=== PATIENT | female | born 1995 | race Caucasian/White ===

== ENCOUNTER → 2020-06-27 13:14 | Outpatient (CLI) | payer SELFPAY ==
--- NOTE | 2020-06-27 13:21 | US_ITS ---
STUDY: ABDOMINAL ULTRASOUND - RIGHT UPPER QUADRANT REASON FOR VISIT: Female, 24 years old RUQ PAIN SPLENOMEGALY SEEN ON CT LESIONS ON LIVER ON CT TECHNIQUE: Ultrasound evaluation of the right upper quadrant was performed with real-time and static koo-scale imaging. TECHNICAL QUALITY: Adequate. COMPARISON: None. FINDINGS: Liver: The liver measures 15.5 cm. There is normal echogenicity of the liver. The bile ducts are within normal limits. There is hepatic color flow. The direction of portal flow is hepatopetal. There are 3 slightly echogenic nodules in the right lobe of the liver suggestive of hemangiomas. The largest measures 1.4 cm x 1.1 cm x 1.2 cm. Gallbladder: Normal distended gallbladder. The gallbladder wall measures 1.7 mm. There is a negative sonographic More''s sign. There is no pericholecystic fluid. There are no gallstones. Common Bile Duct (C.B.D.): The common bile duct measures 2.6 mm. Pancreas: Normal size of the head, body and tail of the pancreas. There is normal echogenicity of the pancreas. There is no demonstrated pancreatic mass or cyst. Right Kidney: Normal size of the right kidney. The right kidney measures 10.7 cm x 5.8 cm x 4.2 cm. Normal renal cortex. The right cortex measures 1.5 cm. There is no demonstrated renal mass or cyst. There is no right hydronephrosis. IMPRESSION: 3 small slightly echogenic nodules in the right lobe of the liver suggestive of hemangiomas. The largest measures 1.4 cm x 1.1 cm x 1.2 cm. Electronically Signed: Richard Crespo MD at 15:13 EST , Service support , STUDY: ABDOMINAL ULTRASOUND - LEFT UPPER QUADRANT REASON FOR EXAM: Female, 24 years old. RUQ PAIN SPLENOMEGALY SEEN ON CT LESIONS ON LIVER ON CT TECHNIQUE: Transabdominal ultrasound was performed with real-time and static koo scale imaging. TECHNICAL QUALITY: Adequate. COMPARISON: None. FINDINGS: Spleen: Normal size of the spleen. The spleen measures 12.7 cm x 5.3 cm x 5.9 cm. Left Kidney: Normal size of the left kidney. The left kidney measures 10.7 cm x 4.7 cm x 5 cm. Normal renal cortex. The left cortex measures 1.8 cm. There is no demonstrated renal mass or cyst. There is no left hydronephrosis. US/Abdomen Limited IMPRESSION: Normal left upper quadrant abdominal ultrasound examination. Electronically Signed: Richard Crespo MD at 15:13 EST , Service support ,
== END ==
PROVIDERS: PCP Nurse Practitioner Family; Referring Provider Internal Medicine; Visit Provider Internal Medicine
DX: R16.1 Splenomegaly, not elsewhere classified (principal); K76.9 Liver disease, unspecified
CPT/HCPCS: 76705

== ENCOUNTER → 2022-08-13 | Outpatient (CLI) | payer OTHER, SELFPAY ==
[2022-08-13 15:57] LABS: Internal QC Validated? YES +Cl - CLEAR BKGD
[2022-08-13 16:01] LABS: Pregnancy, Serum, hCG Quali. POSITIVE Negative
== END | disposition home or self-care (01) ==
PROVIDERS: PCP Nurse Practitioner Family; Referring Provider Nurse Practitioner Family; Visit Provider Nurse Practitioner Family
DX: N92.6 Irregular menstruation, unspecified (principal)
CPT/HCPCS: 36415; 84703

== ENCOUNTER 2023-02-07 10:55 | Outpatient (CLI) | payer OTHER, SELFPAY ==
[2023-02-07] VITALS (8 sets, daily range): BP systolic 115–122; BP diastolic 74–81; PULSE 79–97; TEMP 37.3; O2SAT 97–98; BMI 35.0
--- NOTE | 2023-02-09 08:31 | OB.TRI.NOTE ---
HPI - General General Date of Service: 02/07/23 HPI Narrative SHAMA LIVINGSTON, is a 27 F who presents feeking dizzy. Maternal Data Information Final ESTEFANÍA: 04/25/23 Gestational age: 29 PFSH PFSH Home Medications magnesium 200 mg tablet 400 mg PO DAILY 02/07/23 [History Last Taken 02/06/23] vit 115-iron fum 29 mg iron-folic acid 1 mg-dss 25 mg tablet 1 tab PO DAILY 02/07/23 [History Last Taken 02/06/23] Allergy/AdvReac Type Severity Reaction Status Date / Time clindamycin Allergy Intermediate Rash Verified 02/07/23 11:13 levofloxacin [From Levaquin] Allergy Intermediate Rash Verified 02/07/23 11:13 sulfamethoxazole Allergy Intermediate Rash Verified 02/07/23 11:13 [From Bactrim] trimethoprim [From Bactrim] Allergy Intermediate Rash Verified 02/07/23 11:13 rizatriptan [From Maxalt] AdvReac Severe Low blood Verified 02/07/23 11:13 pressure Social History Smoking Status: Never smoker NST FHR Rate Baby A Baseline: 135 Variability:: Moderate Accelerations:: 15 x 15 Decelerations:: None Uterine Activity:: quiet Assessment & Plan (1) Dizzy: PLAN: Plan reactive NST
== END 2023-02-07 11:55 | disposition home or self-care (01) ==
LOC: WPOUT 10:59 → WP 10:59
PROVIDERS: PCP Family Medicine; Visit Provider Obstetrics & Gynecology
DX: O99.891 Other specified diseases and conditions complicating pregnancy (principal); R42 Dizziness and giddiness; Z3A.00 Weeks of gestation of pregnancy not specified
CPT/HCPCS: 59025; 59050

== ENCOUNTER 2023-04-22 05:00 | Inpatient (IN) | payer OTHER, SELFPAY ==
--- NOTE | 2023-04-05 15:44 | PCM.HP.BLA ---
History and Physical Date of Admission: 04/22/23 Pre-Op History and Physical ? HPI: The patient is a 27 year old female presenting for pre-operative visit. She is scheduled for , for previous c/s and 39 weeks on 04/22/23. Procedure discussed along with risks, benefits and complications. Other alternatives discussed for management. Consent form signed? Yes. ? ? PAST MEDICAL HISTORY PAST MEDICAL HISTORY Diagnosis Date ? Anemia ? ? Atypical squamous cells cannot exclude high grade squamous intraepithelial lesion on cytologic smear of cervix (ASC-H) 11/2021 ? Cardiac arrhythmia ? ? Patient states this was due to panic attacks due to a personal situation ? Cervical high risk HPV (human papillomavirus) test positive 11/2021 ? Depression ? ? Dizziness ? ? Interstitial cystitis ? ? Lazy eye ? ? As child ? Migraines ? ? with visual aura ? depression ? ? Screening for genetic disease carrier status 10/2022 ? carrier screen panel neg. results in EPIC ? Tachycardia ? ? ? PAST SURGICAL HISTORY PAST SURGICAL HISTORY Procedure Laterality Date ? DELIVERY ONLY ? 2013 ? DELIVERY ONLY ? 2016 ? CYSTOSCOPY ? ? ? 09/24 ? INSERT INTRAUTERINE DEVICE ? 01/18/2019 ? fell out ? ? ? CURRENT MEDICATIONS Current Outpatient Medications Medication Sig Dispense Refill ? vits62/FA/om3/dha/epa ( GUMMY ORAL) Take by mouth. ? ? ? magnesium oxide 400 mg magnesium cap Take 400 mg by mouth. ? ? ? loratadine (CLARITIN) 10 mg tablet, chewable Take 10 mg by mouth once daily. ? ? ? No current facility-administered medications for this visit. ? ? ALLERGIES: Bactrim [Sulfamethoxazole], Clindamycin, Levaquin [Levofloxacin], Maxalt [Rizatriptan], and Vancomycin ? PERSONAL HISTORY: SOCIAL HISTORY Social History ? Tobacco Use ? Smoking status: Former ? ? Years: 2 ? ? Types: Cigarettes ? ? Quit date: 09/10/2020 ? ? Years since quittin.5 ? Smokeless tobacco: Never ? Tobacco comments: ? ? socially Vaping Use ? Vaping Use: Former ? Quit date: 09/17/2020 ? Substances: Nicotine Substance Use Topics ? Alcohol use: Never ? ? Comment: seldom ? Drug use: No ? FAMILY HISTORY: FAMILY HISTORY FAMILY HISTORY Problem Relation Age of Onset ? Thyroid Mother ? ? Hyperlipidemia Mother ? ? other (irritable bowel disease) Mother ? ? other (hyperthyroid) Mother ? ? Hyperlipidemia Father ? ? Hypertension Father ? ? other (atrial fibrillation) Father ? ? Obesity Sister ? ? other (pcos) Sister ? ? Depression Brother ? ? Breast Cancer Maternal Grandmother ? ? Cancer Maternal Grandfather ? ? prostate cancer ? Asthma Maternal Grandfather ? ? Cataract Maternal Grandfather ? ? COPD Maternal Grandfather ? ? No Known Problems Paternal Grandmother ? ? Thyroid Paternal Grandfather ? ? Asthma Son ? ? Asthma Son ? ? ? REVIEW OF SYMPTOMS: GENERAL: denies fevers or chills ENDOCRINOLOGY: has not been on steroids Cardiology : denies palpitations or chest pain Respiratory: denies SOB or cough Hematology: denies history of prolonged bleeding or easy bruising or VTE Allergy: Denies history of personal or family history of allergy to anesthesia ? PHYSICAL EXAMINATION: ? VITALS: Blood pressure 108/68, weight 223 lb (101.2 kg), last menstrual period 07/19/2022. ? GENERAL: The patient is well nourished, well hydrated in no acute distress. , The patient is oriented to time, place, and person. NECK: Supple. No lynphadenopathy, normal thyroid, no thyromegaly. LUNGS: Clear to auscultation bilaterally. no wheezes, rhonchi or rales HEART: Regular rate and rhythm, Normal heart sounds, and No murmurs or gallops GENITALIA: Normal external genitalia, Urethral meatus normal, Bladder nontender, normal vagina and normal vaginal tone, normal cervix, normal uterus, size and consistency, normal adnexa without masses or tenderness, and perineum WNL ? IMPRESSION: Estimated Date of Delivery: 04/25/23 ? PLAN: The risks/benefits/alternatives and personal involved for the planned were reviewed with the patient. Her questions were answered to her satisfaction and she desires to proceed. Consent was signed. I reviewed with her postop instructions and expectations. ? ? I have reviewed and updated past medical and surgical history, medications and allergies
[2023-04-22] VITALS (15 sets, daily range): BP systolic 111–155; BP diastolic 52–84; PULSE 69–116; RESP 15–18; TEMP 35.9–36.7; O2SAT 95–100; BMI 39.3
[2023-04-22] MEDS: Lactated Ringers 1,000 ML 999 ML IV (05:20)
[2023-04-22 05:38] LABS: Absolute Lymphocyte Count 1.44 X10^3/uL (0.83-4.51); Absolute Neutrophil Count 4.2 X10^3/uL (2.0-7.7); Basophil# 0.03 X10^3/uL; Basophil% 0.5 % (0-1); Eosinophils% 1.6 % (0-5); Hematocrit 34.9 % (37-47); Hemoglobin 11.6 g/dL (12.0-15.0); Lymphocyte # 1.44 X10^3/ul (0.83-4.51); Lymphocyte % 23.6 % (19-41); Mean Corp Hgb Conc 33.2 g/dL (32-36); Mean Corpuscular Hgb 26.7 pg (27.0-32.0); Mean Corpuscular Volume 80.2 fL (81-99); Mean Platelet Vol. 11.7 fl (6.2-12.0); Monocyte# 0.32 X10^3/uL; Monocyte% 5.2 % (0-10); NRBC Flagged by Analyzer 0 % (0-5); Neutrophil # 4.19 X10^3/uL (2.7-7.7); Neutrophil % 68.8 % (47-70); Platelet Count 194 K/mm3 (150-450); RBC Distribution Width CV 13.7 % (11.6-14.6); RBC Distribution Width SD 39.7 fl (35.1-43.9); Red Blood Count 4.35 M/mm3 (4.2-5.4); White Blood Count 6.1 K/mm3 (4.4-11.0)
[2023-04-22 06:21] LABS: Syphilis Antibodies Non-reactive
[2023-04-22] MEDS: Lactated Ringers 1,000 ML 150 ML IV (06:22)
[2023-04-22] MEDS: Sodium Citrate/Citric Acid 30 ML UDC PO (06:54)
[2023-04-22] MEDS: Acetaminophen 500 MG Tablet 1000 MG PO ×2 (06:54→20:21)
[2023-04-22] MEDS: Cefazolin 2 GM in 0.9% Normal Saline (100mL Bag) 100 ML IV (07:06)
[2023-04-22 07:25] LABS: ALB/GLOB Ratio 0.7 RATIO (0.9-2.4); AST(SGOT) 18 U/L (15-37); Alanine Aminotransfer ALT/SGPT 18 U/L (13-56); Albumin, Serum 2.7 g/dL (3.2-5.0); Alkaline Phosphatase 96 U/L (45-117); Anion Gap 10 (5-15); BUN 6 mg/dL (7-18); BUN/Creat Ratio 9.6 RATIO (10-20); Calcium,Total 8.2 mg/dL (8.5-10.1); Chloride 108 mmol/L (98-107); Creatinine, Serum 0.63 mg/dL (0.55-1.02); EST Glomerular Filtration Rate 119 mL/min (>60); Est Glom Filt Rate - Afr Amer 144 mL/min (>60); Estimated Creatinine Clearance 113.78 ml/min; Globulin 4.1 g/dL (2.2-4.2); Glucose 196 mg/dL (74-106); Potassium 3.5 mmol/L (3.5-5.1); Protein, Total 6.8 g/dL (6.4-8.2); Sodium Level 140 mmol/L (136-145)
--- NOTE | 2023-04-22 08:07 | OP.PCM_ITS ---
Assessment & Plan (1) 39 weeks gestation of : (2) delivery delivered: (3) Previous delivery affecting : (4) Delivery outcome of single liveborn infant: (5) Maternal obesity syndrome in third trimester: (6) Severe obesity (BMI 35.0-39.9) with comorbidity: Maternal Data Information Final ESTEFANÍA: 04/25/23 Gestational age: 39 4/7 Details Operative Information Date of Procedure: 04/22/23 Pre-Operative Diagnosis: previous c/s Post-Operative Diagnosis: same Indications for : Repeat Elective Classification: Scheduled Procedure Type: low transverse senior construction manager #1: Tirso Coulter Type of Anesthesia: Spinal Anesthesiologist: Jack Garcia Special Medications: duramorph Antibiotic Given: Ancef 2 grams IV x1 Drain: Vickres to straight drain Estimated Blood Loss: 600 Fluids Replaced: 950 Procedure Start Time: 07:35 Time of Delivery: 07:40 Findings Description of Procedure: The patient was taken to the operating room. She was prepped and draped in the dorsal supine position with a leftward tilt. A Pfannenstiel skin incision was made approximately 2 cm above the symphysis pubis and carried through to un derlying layer fascia with the scalpel. The fascia was incised incised in the midline and extended laterally with the Balbuena scissors. The fascia was dissected off the rectus muscles with blunt and sharp dissection. The rectus muscles were in the midline and the peritoneum was entered bluntly. There were some peritoneal adhesions from the pelvic sidewalls to the lower uterine segment. The peritoneal incision was stretched and the bladder blade was placed. The uterine incision was made in a low transverse fashion with the scalpel and extended superiorly and inferiorly with blunt dissection. The amniotic membranes were ruptured bluntly and clear amniotic fluid returned. The 's head was brought to the incision in the flexed position and delivered without difficulty. The remainder of the was delivered with gentle traction and fundal pressure in the standard fashion. The mouth and nares were bulb suctioned. The cord was clamped and cut as the was stimulated. Cord clamping was delayed. The was handed off to the waiting nursing staff. The placenta was delivered with fundal massage and gentle traction in the standard fashion. The uterus was exteriorized and cleared of all clots and debris. The cervix was dilated with a ring forcep. The uterine incision was closed with #1 Vicryl in a running locked fashion. Some hemoblast was placed o jack the incision and hemostasis was noted. The incision was examined and was found to be hemostatic. The uterus was placed back into the peritoneal cavity and hemostasis was again confirmed. The rectus muscles were examined and any bleeding was Bovie cauterized. There was not enough laxity to reapproximate the rectus muscles but the peritoneum was closed in a running standard fashion with 0 Vicryl suture.. The surgical teams outer gloves were then changed. The rectus fascia was examined and any bleeding was Bovie cauterized and the rectus fascia was closed with #1 PDS suture in a running standard fashion. The subcutaneous tissue was examining and any bleeding was Bovie cauterized. The subcutaneous tissue was reapproximated with 3-0 Vicryl suture. The skin was closed in a subcuticular fashion by the DIRECTOR OF MATERNITY SERVICES with me present in the labor and delivery suite. I performed the remainder of the procedure with assistance. All sponge, lap, and needle counts were correct. The patient was taken to her room for recovery in a stable condition. Presentation: Positive for Vertex Amniotic Membrane Rupture Type: Spontaneous Amniotic Fluid Description: Clear Placental Delivery Description: Expressed Placenta Disposition: [facility] Cord Vessel Description: 3 Vessels Cord Entanglement: Around neck x 1, loose Nuchal Cord Compression: Without compression Infant A Gender: Male (Devan 7 pounds 13 ounces) (1 minute): 8 (5 minute): 9 Delayed Cord Clamping: Yes Complications Complications: none
[2023-04-22] MEDS: Oxytocin 15 Units/NS 250ml 15 UNITS/250 ML IV.SOLN 83 UNITS IV (08:35)
[2023-04-22] MEDS: Ketorolac 30 MG/ML Syringe IV ×3 (09:05→20:20)
[2023-04-22] MEDS: Ondansetron 4 MG/2 ML Vial IV ×2 (10:58→12:46)
[2023-04-22] MEDS: 0.9% Saline Lock 10 ML Syringe IV ×2 (10:59→20:20)
[2023-04-22] MEDS: Lactated Ringers 1,000 ML 100 ML IV (11:54)
[2023-04-22] MEDS: Enoxaparin 40 MG/0.4 ML Syringe SC (20:20)
[2023-04-23 00:01] VITALS: BP 118/51; PULSE 81; RESP 15; TEMP 36.4; O2SAT 98
[2023-04-23] MEDS: Acetaminophen 500 MG Tablet 1000 MG PO ×4 (01:01→19:55)
[2023-04-23] MEDS: 0.9% Saline Lock 10 ML Syringe IV (02:38)
[2023-04-23] MEDS: Ketorolac 30 MG/ML Syringe IV (02:38)
[2023-04-23 03:35] VITALS: BP 124/51; PULSE 81; RESP 17; TEMP 36.4; O2SAT 98
[2023-04-23 06:27] LABS: Hemoglobin 9.4 g/dL (12.0-15.0); Mean Corp Hgb Conc 31.3 g/dL (32-36); Mean Corpuscular Hgb 25.5 pg (27.0-32.0); Mean Corpuscular Volume 81.3 fL (81-99); Mean Platelet Vol. 11.2 fl (6.2-12.0); Platelet Count 161 K/mm3 (150-450); RBC Distribution Width CV 13.9 % (11.6-14.6); RBC Distribution Width SD 40.8 fl (35.1-43.9); Red Blood Count 3.69 M/mm3 (4.2-5.4)
--- NOTE | 2023-04-23 08:18 | PN_ITS ---
Subjective Subjective patient seen at bedside, doing well. Patient reports good pain control. lochia mild. Passing flatus. pt reports Breast feeding w/o concerns. Objective Data Objective Data Vital Signs: Vital Signs Temp Pulse Resp BP Pulse Ox O2 Del Method 97.5 F L 81 17 124/51 H 98 Room Air 04/23/23 03:35 04/23/23 03:35 04/23/23 03:35 04/23/23 03:35 04/23/23 03:35 04/23/23 03:35 Oxygen Delivery Method Room Air Weight: 104 kg Body Mass Index (BMI) 39.3 Intake & Output: Intake and Output for Last 24 Hours 04/21/23 04/22/23 04/23/23 23:59 23:59 23:59 Intake Total 2061.67 / 2061.67 Output Total 1500 / 1500 Balance 561.67 / 561.67 Lab / Micro Data 04/23/23 06:13 04/22/23 05:20 Labs: Laboratory Results - last 24 hr 04/22/23 05:20: Blood Type A POSITIVE, Antibody Screen NEGATIVE 04/23/23 06:13: WBC 7.0, RBC 3.69 L, Hgb 9.4 L, Hct 30.0 L, MCV 81.3, MCH 25.5 L , MCHC 31.3 L D, RDW Std Deviation 40.8, RDW Coeff of Danial 13.9, Plt Count 161, MPV 11.2 Physical Exam Narrative dressing dry and intact. fundus firm Const alert and oriented x3 General Appearance: cooperative HEENT normocephalic Neck General: normal visual inspection GI soft to palpation and non-distended GI Narrative: Fundus firm Extremity normal to inspection and no calf tenderness Skin no rashes or lesions noted Neuro oriented x3 and CN's II-XII intact bilaterally Psych mental status grossly normal Assessment & Plan Assessment/Plan (1) Delivery by section: (2) Severe obesity (BMI 35.0-39.9) with comorbidity: PLAN: Plan POD#1 , Doing well Routine care pain mgmt monitor VS ambulation dc home requested by patient - declines any narcotic rx
--- NOTE | 2023-04-23 08:20 | DS.PCM_ITS ---
Discharge Summary Date of Admission: 04/22/23 Date of Discharge: 04/23/23 Summary: pt admitted to [facility] on 04/22/23 for scheduled performed by Dr. Linda Shultz. Patient had an uncomplicated postoperative course. She was discharged home on postoperative day 1 without complication. Meaningful Use Info Meaningful Use Diagnoses (Choose all that apply): None applicable Discharge Plan Admission Admit Date/Time: 04/22/23 05:00 Attending Provider: Linda Shultz Primary Care Provider: Yovana Olvera Discharge Orders/Prescriptions Prescriptions: No Action magnesium 200 mg tablet 400 mg PO DAILY prenat 115-iron [id number] 29 mg iron- 1 mg-25 mg tablet 1 tab PO DAILY Referrals / Follow Up: Yovana Olvera, [Primary Care Provider] -
--- NOTE | 2023-04-23 08:32 | DS.PCM_ITS ---
Providers Date of Admission: 04/22/23 Primary Care Physician: Yovana Olvera DO Reason For Visit: C SECTION Diagnosis Discharge Diagnosis (1) Delivery by section: Status: Acute (2) Severe obesity (BMI 35.0-39.9) with comorbidity: Status: Acute Code(s): E66.01 - Morbid (severe) obesity due to excess calories Medications at Discharge Home Medications magnesium 200 mg tablet 400 mg PO DAILY 02/07/23 vit 115-iron fum 29 mg iron-folic acid 1 mg-dss 25 mg tablet 1 tab PO DAILY 02/07/23 Hospital Course Operations - (Repeat LTCS on 04/22/23) Procedures None Summary of Care Provided Minutes Spent on Discharge: 18 Hospital Course: 27-year-old multigravida female admitted at 39+ gestational weeks on 04/22/2023. She had a repeat section done without complications. By day #1 she was hemodynamically stable, her mild acute blood loss anemia was appropriate for blood loss during surgery. She was discharged home with routine instructions and follow-up. The was doing well. Physical Exam Narrative Pain well-controlled average lochia. No nausea or vomiting. Const alert General Appearance: cooperative GI GI Narrative: soft, moderate distention, fundus firm, appropriately tender. Abdominal bandage clean dry and intact Weight / BMI Weight Weight: 104 kg Body Mass Index (BMI) 39.3 ABG / Lab / Microbiology Data 04/23/23 06:13 04/22/23 05:20 Laboratory: Laboratory Results - last 24 hr 04/22/23 05:20: Blood Type A POSITIVE, Antibody Screen NEGATIVE 04/23/23 06:13: WBC 7.0, RBC 3.69 L, Hgb 9.4 L, Hct 30.0 L, MCV 81.3, MCH 25.5 L , MCHC 31.3 L D, RDW Std Deviation 40.8, RDW Coeff of Danial 13.9, Plt Count 161, MPV 11.2 D/C Instructions Discharge Diet: No restrictions May resume sexual activity in: 4-6 weeks Lifting Restrictions: 20 pounds Additional Activity Instructions: Nothing in the vagina for 4-6 weeks. You may return to work/school in 6 weeks. Call your doctor if your incision/area has: Continuous Slow Oozing, Sudden Increased Bleeding, Increased Pain/ Swelling, Increased Redness and Foul Smelling Discharge Call your doctor if you observe: Fever of 101 or Higher and Using more than 1 pad per hour (for 2 hours) Suture Line Care: Avoid Pulling/Pushing and Avoid Pinching/Bending Cleanse incision/area with: Keep Dressing Clean & Dry Please Follow Up With: Linda Shultz MD When: Call to make an appointment for an incision check in 1-2 [phone]. You will need a post check in 6 weeks. Send a [employer] message for any questions or non urgent concerns Meaningful Use Info Meaningful Use Diagnoses (Choose all that apply): None applicable Discharge Plan Admission Admit Date/Time: 04/22/23 05:00 Primary Reason for Your Visit: Repeat Attending Provider: Linda Shultz Primary Care Provider: Yovana Olvera Discharge Orders/Prescriptions Prescriptions: No Action magnesium 200 mg tablet 400 mg PO DAILY prenat 115-iron [id number] 29 mg iron- 1 mg-25 mg tablet 1 tab PO DAILY Referrals / Follow Up: Yovana Olvera, DO [Primary Care Provider] - Disposition Disposition (needs filled in before D/C Order can be placed): Home, Self Care
[2023-04-23 09:01] LABS: Bedside Glucose 111 mg/dL (74-106)
[2023-04-23 09:18] VITALS: BP 117/58; PULSE 74; RESP 18; TEMP 37.1
[2023-04-23] MEDS: Ibuprofen 600 MG Tablet PO ×3 (10:07→22:48)
[2023-04-23] MEDS: Senna/Docusate Sodium 1 Tablet PO (10:07)
--- NOTE | 2023-04-23 10:35 | CASEMGMT ---
Social Work Assessment Labor and Delivery Unit Patient Address: [address] [place] [address] [address] [place] Phone number: [phone] Date of Referral: 04/22/2023 Time of Referral:? 12:20 Referred By: Carrington Date of Intervention: ?04/23/2023 Time of Intervention:? 10:30 Reason for Referral:? PPD History obtained from: medical records and mother of baby (MOB) and FOB Household composition: MOB, FOB ? when not in [place]. FOB has been in [place] for the . Two sons ages 9 and 6. Patient's parent/guardian status: MOB and FOB are and have been together 3 years. FOB is planning to exit the to be home more. FOB is taking parental leave. Medical History: MOB received adequate care. MOB denies any medical concerns. Born via . Baby boy, Devan Stanton, 7.14 lbs, 8/9 apgars. MOB denies medical concerns for baby. Educational Status: No literacy concerns Financial Status: No financial concerns Infant Supplies: Parents report having all necessary supplies and equipment Childcare/Caregiver(s):? MOB plans to care for child and FOB while on leave. Grandparents live 10 minutes away. Transportation:? No concerns Programs/Agencies Involved: ??None currently Children Services/Legal Issues:??? None Behavioral Health Issues: ?? Mental Health History: Mother denies any major mental health concerns/history. Mother does report PPD with prior pregnancies 6 and 9 years ago but also reports it was a difficult relationship with their father. Substance Use History:?? Denies personal history. Family History: Denies family history.??? Drug Screens: ?None Family/Social Stressors: ?FOB active in the , has applied to discharge as he lives in [place] currently and was unable to bring /kids to [place]. Support Systems: Grandparents are involved and supportive Depression: Education provided and parents receptive Shaken Baby: Education provided and parents receptive Safe Sleeping: Education provided and parents receptive ASSESSMENT: MOB and FOB appropriate. Parents ask appropriate questions and have a good support system. PLAN:? No other services requested or indicated. Keeley Smith [employer]ISTURE METER [employer], [employer]
[2023-04-23 13:00] VITALS: BP 132/72; PULSE 99; RESP 18; TEMP 36.4
--- NOTE | 2023-04-23 13:23 | PCM.PN.BLA ---
Progress Note Update-Patient going home tomorrow due to baby needing recheck on bilirubin. See discharge instructions for today's note.
[2023-04-23] MEDS: oxyCODONE 5 MG Tablet PO ×2 (16:47→22:48)
[2023-04-23] MEDS: SimETHICONE 80 MG Chewable Tablet PO (16:47)
[2023-04-23 19:40] VITALS: BP 144/84; PULSE 104; RESP 14; TEMP 36.4; O2SAT 97
[2023-04-23] MEDS: Enoxaparin 40 MG/0.4 ML Syringe SC (19:55)
[2023-04-24] MEDS: Acetaminophen 500 MG Tablet 1000 MG PO ×4 (02:00→20:30)
[2023-04-24 02:01] VITALS: BP 127/63; PULSE 97; RESP 14; TEMP 36.4
[2023-04-24] MEDS: oxyCODONE 5 MG Tablet PO ×4 (04:25→21:22)
[2023-04-24] MEDS: Ibuprofen 600 MG Tablet PO ×4 (04:26→22:15)
[2023-04-24 07:29] VITALS: BP 130/78; PULSE 80; RESP 16; TEMP 35.9
[2023-04-24] MEDS: Senna/Docusate Sodium 1 Tablet PO (10:19)
--- NOTE | 2023-04-24 11:04 | DS.PCM_ITS ---
Providers Date of Admission: 04/22/23 Primary Care Physician: Yovana Olvera DO Reason For Visit: C SECTION Diagnosis Discharge Diagnosis (1) Delivery by section: Status: Acute (2) Severe obesity (BMI 35.0-39.9) with comorbidity: Status: Acute Code(s): E66.01 - Morbid (severe) obesity due to excess calories (3) Post-operative pain: Status: Acute Code(s): G89.18 - Other acute postprocedural pain Medications at Discharge Home Medications vit 115-iron fum 29 mg iron-folic acid 1 mg-dss 25 mg tablet 1 tab PO DAILY 02/07/23 acetaminophen 500 mg tablet 1,000 mg (2 x 500 mg) PO Q6H #0 tabs 04/24/23 ibuprofen 600 mg tablet 600 mg PO Q6H #0 tabs 04/24/23 oxycodone 5 mg tablet 5 - 10 mg (1 - 2 x 5 mg) PO Q4H PRN PRN Pain Score 4-10 3 days #14 tabs 04/24/23 sennosides 8.6 mg-docusate sodium 50 mg tablet (Stool Softener-Stimulant Laxative) 1 - 2 tab PO DAILY #0 tabs 04/24/23 Hospital Course Operations section Procedures None Summary of Care Provided Minutes Spent on Discharge: 20 Hospital Course: Patient had repeat section. Hospital course was uneventful. Physical Exam Narrative Patient seen at bedside. Ambulating and voiding without difficulty. Denies headache, dizziness, SOB, or CP. independently. Desires discharge home later today. under lights and may need to stay another day. Const alert and no apparent distress General Appearance: cooperative and comfortable Exam Limitations: no limitations HEENT normocephalic Eyes General Eye: normal appearance of both eyes Neck full ROM General: normal visual inspection Chest Chest: symmetrical chest wall rise Resp normal respiratory effort and normal air movement Effort and Inspection: symmetric chest movement Auscultation: clear to auscultation bilaterally Cardio regular rate and regular rhythm GI normal to inspection, nondistended, normoactive bowel sounds Back/Spine normal ROM Extremity full ROM and no calf tenderness General Extremity: normal exam except as noted Skin no rashes or lesions noted Neuro CN's II-XII intact bilaterally Psych mental status grossly normal Weight / BMI Weight Weight: 229 lb 4.492 oz Body Mass Index (BMI) 39.3 ABG / Lab / Microbiology Data 04/23/23 06:13 04/22/23 05:20 D/C Instructions Discharge Diet: No restrictions May resume sexual activity in: 4-6 weeks Additional Activity Instructions: Nothing in the vagina for 4-6 weeks. You may return to work/school in 6 weeks. Call your doctor if your incision/area has: Continuous Slow Oozing, Sudden Increased Bleeding, Increased Pain/ Swelling, Increased Redness and Foul Smelling Discharge Call your doctor if you observe: Fever of 101 or Higher and Using more than 1 pad per hour (for 2 hours) Suture Line Care: Avoid Pulling/Pushing and Avoid Pinching/Bending Cleanse incision/area with: Keep Dressing Clean & Dry Please Follow Up With: Linda Shultz MD When: Call to make an appointment for an incision check in 1-2 [phone]. You will need a post check in 6 weeks. Send a [employer] message for any questions or non urgent concerns Meaningful Use Info Meaningful Use Diagnoses (Choose all that apply): None applicable Discharge Plan Admission Admit Date/Time: 04/22/23 05:00 Primary Reason for Your Visit: Repeat Attending Provider: Linda Shultz Primary Care Provider: Yovana Olvera Discharge Orders/Prescriptions Prescriptions: New sennosides-docusate sodium [Stool Softener-Stimulant Laxat] 8.6-50 mg Tablet 1 - 2 tab PO DAILY Qty: 0 0RF acetaminophen 500 mg Tablet 1,000 mg PO Q6H Qty: 0 0RF ibuprofen 600 mg Tablet 600 mg PO Q6H Qty: 0 0RF oxycodone 5 mg Tablet 5 - 10 mg PO Q4H PRN PRN (Reason: Pain Score 4-10) 3 Days Qty: 14 0RF Continued prenat 115-iron [id number] 29 mg iron- 1 mg-25 mg tablet 1 tab PO DAILY Discontinued magnesium 200 mg tablet 400 mg PO DAILY Referrals / Follow Up: Yovana Olvera DO [Primary Care Provider] - Disposition Disposition (needs filled in before D/C Order can be placed): Home, Self Care
[2023-04-24 14:51] VITALS: BP 137/84; PULSE 91; RESP 16; TEMP 36.4
[2023-04-24 20:25] VITALS: BP 140/88; PULSE 105; RESP 16; TEMP 36.7; O2SAT 96
[2023-04-24] MEDS: Enoxaparin 40 MG/0.4 ML Syringe SC (20:30)
[2023-04-25 00:35] VITALS: BP 115/59; PULSE 82; RESP 16; TEMP 36.6; O2SAT 100
[2023-04-25] MEDS: Acetaminophen 500 MG Tablet 1000 MG PO ×3 (03:09→15:10)
[2023-04-25 03:10] VITALS: BP 133/77; PULSE 96; RESP 20; TEMP 36.4; O2SAT 98
[2023-04-25] MEDS: Ibuprofen 600 MG Tablet PO ×3 (04:31→16:30)
[2023-04-25] MEDS: oxyCODONE 5 MG Tablet PO (06:07)
--- NOTE | 2023-04-25 08:24 | PCM.DC.SUM ---
Providers Date of Admission: 04/22/23 Primary Care Physician: Yovana Olvera DO Reason For Visit: C SECTION Diagnosis Discharge Diagnosis (1) Delivery by section: Status: Acute (2) Severe obesity (BMI 35.0-39.9) with comorbidity: Status: Acute Code(s): E66.01 - Morbid (severe) obesity due to excess calories (3) Post-operative pain: Status: Acute Code(s): G89.18 - Other acute postprocedural pain Medications at Discharge Home Medications vit 115-iron fum 29 mg iron-folic acid 1 mg-dss 25 mg tablet 1 tab PO DAILY 02/07/23 acetaminophen 500 mg tablet 1,000 mg (2 x 500 mg) PO Q6H #0 tabs 04/24/23 ibuprofen 600 mg tablet 600 mg PO Q6H #0 tabs 04/24/23 oxycodone 5 mg tablet 5 - 10 mg (1 - 2 x 5 mg) PO Q4H PRN PRN Pain Score 4-10 3 days #14 tabs 04/24/23 sennosides 8.6 mg-docusate sodium 50 mg tablet (Stool Softener-Stimulant Laxative) 1 - 2 tab PO DAILY #0 tabs 04/24/23 Hospital Course Operations section Procedures None Summary of Care Provided Minutes Spent on Discharge: 15 Physical Exam Narrative Dressing is dry and intact Const alert and no apparent distress General Appearance: cooperative and comfortable Exam Limitations: no limitations HEENT normocephalic Eyes General Eye: normal appearance of both eyes Neck full ROM General: normal visual inspection Chest Chest: symmetrical chest wall rise Resp normal respiratory effort and normal air movement Effort and Inspection: symmetric chest movement Auscultation: clear to auscultation bilaterally Cardio regular rate and regular rhythm GI normal to inspection, nondistended, normoactive bowel sounds Back/Spine normal ROM Extremity full ROM and no calf tenderness General Extremity: normal exam except as noted Skin no rashes or lesions noted Neuro CN's II-XII intact bilaterally Psych mental status grossly normal Weight / BMI Weight Weight: 229 lb 4.492 oz Body Mass Index (BMI) 39.3 ABG / Lab / Microbiology Data 04/23/23 06:13 04/22/23 05:20 D/C Instructions Discharge Diet: No restrictions May resume sexual activity in: 4-6 weeks Additional Activity Instructions: Nothing in the vagina for 4-6 weeks. You may return to work/school in 6 weeks. Call your doctor if your incision/area has: Continuous Slow Oozing, Sudden Increased Bleeding, Increased Pain/ Swelling, Increased Redness and Foul Smelling Discharge Call your doctor if you observe: Fever of 101 or Higher and Using more than 1 pad per hour (for 2 hours) Suture Line Care: Avoid Pulling/Pushing and Avoid Pinching/Bending Cleanse incision/area with: Keep Dressing Clean & Dry Please Follow Up With: Linda Shultz MD When: Call to make an appointment for an incision check in 1-2 [phone]. You will need a post check in 6 weeks. Send a [employer] message for any questions or non urgent concerns Meaningful Use Info Meaningful Use Diagnoses (Choose all that apply): None applicable Discharge Plan Admission Admit Date/Time: 04/22/23 05:00 Primary Reason for Your Visit: Repeat Attending Provider: Linda Shultz Primary Care Provider: Yovana Olvera Discharge Orders/Prescriptions Prescriptions: New sennosides-docusate sodium [Stool Softener-Stimulant Laxat] 8.6-50 mg Tablet 1 - 2 tab PO DAILY Qty: 0 0RF acetaminophen 500 mg Tablet 1,000 mg PO Q6H Qty: 0 0RF ibuprofen 600 mg Tablet 600 mg PO Q6H Qty: 0 0RF oxycodone 5 mg Tablet 5 - 10 mg PO Q4H PRN PRN (Reason: Pain Score 4-10) 3 Days Qty: 14 0RF Continued prenat 115-iron ifv-[id number] 29 mg iron- 1 mg-25 mg tablet 1 tab PO DAILY Discontinued magnesium 200 mg tablet 400 mg PO DAILY Referrals / Follow Up: Yovana Olvera, DO [Primary Care Provider] - Disposition Disposition (needs filled in before D/C Order can be placed): Home, Self Care
[2023-04-25 09:15] VITALS: BP 130/86; PULSE 93; RESP 16; TEMP 36.4; O2SAT 96
[2023-04-25] MEDS: Senna/Docusate Sodium 1 Tablet PO (10:33)
[2023-04-25 14:39] VITALS: BP 126/74; PULSE 87; RESP 14; TEMP 36.4; O2SAT 98
== END 2023-04-25 17:40 | disposition home or self-care (01) | DRG 788 ==
PROVIDERS: Admitting Provider Obstetrics & Gynecology; PCP Family Medicine; Visit Provider Obstetrics & Gynecology
PROC: 10D00Z1 Extraction of Products of Conception, Low, Open Approach (ICD-10-PCS; CPT 59514; principal; 2023-04-22 07:00)
DX: O34.211 Maternal care for low transverse scar from previous cesarean delivery (principal); O26.03 Excessive weight gain in pregnancy, third trimester; O69.81X0 Labor and delivery complicated by cord around neck, without compression, not applicable or unspecified; Z37.0 Single live birth; Z3A.39 39 weeks gestation of pregnancy; Z63.31 Absence of family member due to military deployment; Z87.891 Personal history of nicotine dependence; Z87.59 Personal history of other complications of pregnancy, childbirth and the puerperium
CPT/HCPCS: 59025; 59050; 80053; 82962; 85025; 85027; 86780; 86850; 86900; 86901; 99221; J7120; A4216; G0378; J2405